=== PATIENT | male | born 1960 | race Caucasian/White ===

== ENCOUNTER 2016-03-28 07:11 | Day surgery (SDC) | payer OTHER ==
[~2016-03-28 07:11] MED LIST: FENTANYL 250 MCG/5 ML AMP IV PRN; LACTATED RINGERS 1,000 ML IV SCH; MIDAZOLAM HCL 5 MG/5 ML VIAL IV PRN
[2016-03-28] MEDS ORDERED: LACTATED RINGERS 1,000 ML ONE (07:38)
[2016-03-28] MEDS ORDERED: IV START KIT ONE (07:38)
[2016-03-28] MEDS ORDERED: MIDAZOLAM HCL 5 MG/5 ML VIAL ONE (08:30)
[2016-03-28] MEDS ORDERED: FENTANYL 5 ML ONE (08:30)
--- NOTE | 2016-03-31 13:42 | SURGPATH ---
[facility] [address] [place] [id number] Patient Name: NANETTE DUNN MR#: [id number] : 1960 Gender: M Specimen #: [id number] Collected: 03/28/2016 Received: 03/30/2016 Reported: 03/31/2016 Submitting Phys: GREG HINOJOSA Copy To Phys: [facility] KORI WING Clinical History / Pre-Operative Diagnosis: SURVEILLANCE; PERSONAL AND FAMILY HISTORY OF COLON POLYPS Specimen Source / Surgical Procedure Performed: MID TRANSVERSE COLON POLYP Interpretation: MID TRANSVERSE COLON POLYP, BIOPSY: - TUBULAR ADENOMA Electronically Signed Out Ranjit Sherman M.D. Gross Description: The specimen is received in a formalin filled container labeled with the patient's name and "mid transverse colon polyp". A polypoid red-polanco biopsy is 0.7 x 0.5 x 0.4 cm. Bisected. Totally embedded in one cassette. Celestino Brewer PJackieAJackie Microscopic Description: Microscopic performed. 1: 69584 D12.3
== END 2016-03-28 09:25 | disposition home or self-care (01) ==
LOC: SDC 07:11
PROVIDERS: ATTEND Internal Medicine Gastroenterology
PROC: 0DBL8ZX Excision of Transverse Colon, Via Natural or Artificial Opening Endoscopic, Diagnostic (ICD-10-PCS; principal; 2016-03-28)
DX: Z12.11 Encounter for screening for malignant neoplasm of colon (principal); D12.3 Benign neoplasm of transverse colon; Z86.010 Personal history of colon polyps; E78.5 Hyperlipidemia, unspecified
CPT/HCPCS: 45385; J3010; J2250; J7120